=== PATIENT | female | born 1995 | race Caucasian/White ===

== ENCOUNTER 2019-05-19 02:25 | Inpatient (IN) ==
[2019-05-19] MEDS ORDERED: STADOL IV PRN ×2 (03:03→04:20)
[2019-05-19] MEDS ORDERED: LR 1,000 ML IV SCH ×2 (03:15→04:30)
[2019-05-19] MEDS ORDERED: PEPCID PO ONE (04:20)
[2019-05-19] MEDS ORDERED: PEPCID IV PRN (04:20)
[2019-05-19] MEDS ORDERED: TYLENOL PO PRN (04:20)
[2019-05-19] MEDS ORDERED: REGLAN PO ONE (04:20)
[2019-05-19] MEDS ORDERED: KEFZOL 1 GM/D5W 1 GM/50 ML IVPB IV PRN (04:20)
[2019-05-19] MEDS ORDERED: ZOFRAN IV PRN (04:20)
[2019-05-19] MEDS ORDERED: SODIUM CHLORIDE 0.9% INJ SCH (04:30)
[2019-05-19] MEDS ORDERED: PITOCIN 30 UNITS/NS 30 UNIT/500 ML IV.SOLN IV SCH ×2 (04:30→10:15)
[2019-05-19] MEDS ORDERED: BICITRA PO ONE (04:33)
[2019-05-19] MEDS ORDERED: REGLAN IV ONE (04:33)
[2019-05-19] MEDS ORDERED: FENTANYL IV ONE (04:33)
[2019-05-19 04:42] LABS: BASO# 0.01 X1000 (0.0-0.2); BASO% 0.1 % (0.0-0.8); EOS# 0.05 X1000 (0.0-0.7); EOS% 0.4 % (0.0-10.0); HEMATOCRIT 35.4 % (37.0-47.0); HEMOGLOBIN 11.8 g/dL (12.0-16.0); IMM GRAN# 0.07 X1000 (0.0-0.04); IMM GRAN% 0.6 % (0.0-0.5); LYMPH# 2.92 X1000 (1.2-3.4); LYMPH% 24.9 % (20.5-51.1); MCH 29.5 PG (27-31); MCHC 33.3 g/dL (33-37); MCV 88.5 FL (81-99); MONO# 1.19 X1000 (0.11-0.59); MONO% 10.1 % (1.7-9.3); MPV 9.2 FL (7.4-10.4); NEUT# 7.51 X1000 (1.4-6.5); NEUT% 63.9 % (42.2-75.2); PLT 355 X1000 (130-400); RDW 13.4 % (11.5-14.5); WBC 11.75 X1000 (4.8-10.8)
[2019-05-19] MEDS ORDERED: FENTANYL-BUPIV-NS 2 MCG-0.1% 250 ML EPIDURAL SCH (04:45)
[2019-05-19] MEDS ORDERED: MINERAL OIL MISC ONE (05:01)
[2019-05-19] MEDS ORDERED: XYLOCAINE-MPF 1% INJ ONE (05:02)
[2019-05-19 06:36] LABS: URINE SOURCE VOIDED
[2019-05-19 06:37] LABS: BILIRUBIN URINE NEGATIVE (NEGATIVE); BLOOD URINE 4+ (NEGATIVE); CLARITY SL. CLOUDY (CLEAR); COLOR YELLOW; GLUCOSE URINE NEGATIVE (NEGATIVE); KETONE URINE 1+(Small) mg/dL (NEGATIVE); LEUKOCYTES URINE TRACE (NEGATIVE); NITRITE URINE NEGATIVE (NEGATIVE); PROTEIN URINE 1+(30 mg/dL) mg/dL (NEGATIVE); SP GRAVITY URINE 1.025; UROBILINOGEN URINE NORMAL
[2019-05-19] MEDS ORDERED: DURAMORPH ONE (06:46)
[2019-05-19] MEDS ORDERED: ZOFRAN ONE (06:47)
[2019-05-19] MEDS ORDERED: PITOCIN ONE ×2 (06:47→08:11)
[2019-05-19] MEDS ORDERED: TORADOL ONE (06:47)
[2019-05-19] MEDS ORDERED: NEO-SYNEPHRINE ONE (06:47)
[2019-05-19] MEDS ORDERED: SODIUM CHLORIDE 0.9% 10 ML ONE (06:47)
[2019-05-19] MEDS ORDERED: ROBINUL ONE (06:54)
[2019-05-19 07:07] LABS: UR AMPHETAMINES QUAL NONE DETECTED (NONE DETECT); UR BARBITUATES QUAL NONE DETECTED (NONE DETECT); UR BENZODIAZEPIN QUAL NONE DETECTED (NONE DETECT); UR CANNABINOIDS QUAL NONE DETECTED (NONE DETECT); UR COCAINE QUAL NONE DETECTED (NONE DETECT); UR METHADONE QUAL NONE DETECTED (NONE DETECT); UR METHAMPHETAMINE QUAL NONE DETECTED (NONE DETECT); UR OPIATES QUAL NONE DETECTED (NONE DETECT); UR OXYCODONE QUAL NONE DETECTED (NONE DETECT); UR PCP QUAL NONE DETECTED (NONE DETECT); UR PROPOXYPHENE QUAL NONE DETECTED (NONE DETECT); UR TCA QUAL NONE DETECTED (NONE DETECT)
--- NOTE | 2019-05-19 07:13 | HISTORY AND PHYSICAL ---
HISTORY OF PRESENT ILLNESS: The patient is a 24-year-old white female, G1, P0 at 39 and 3/7 weeks by early ultrasound. Has been under the care of [facility]. She presented with a onset of uterine contractions and was concerned that she could not make it to [facility]. care was unremarkable. She had a rubella nonimmune status and group B strep culture was negative. PAST MEDICAL HISTORY: Significant for lung mass that was diagnosed in August of this year. PAST SURGICAL HISTORY: She had a lung biopsy performed. She also had tear duct surgery. PAST OBSTETRIC HISTORY: G1, P0. GYNECOLOGIC HISTORY: Menarche at age 16. REVIEW OF SYSTEMS: Significant for asthma. FAMILY HISTORY: Significant for diabetes mellitus, high blood pressure, multiple sclerosis, and breast cancer. SOCIAL HISTORY: Tobacco use, she reports she quit 2 years ago. Alcohol use none. MEDICATIONS: Zantac, vitamins and Tylenol p.r.n. ALLERGIES: No known drug allergies. PHYSICAL EXAMINATION: VITAL SIGNS: Height 5 feet 4 inches, weight 226 pounds, temp 97.5 degrees, blood pressure 136/87, pulse of 91, respirations 22. heart rate in the 120s with positive accelerations. HEENT: Pupils equal, round, reactive to light and accommodation. Extraocular movements intact. Oropharynx clear. NECK: Supple. No thyromegaly. LUNGS: Clear to auscultation. HEART: Regular rate and rhythm. ABDOMEN: Gravid, nontender. Cervix was examined and was 9 cm, ruptured, completely effaced and vertex presentation was noted at 0 station. EXTREMITIES: 1+ DTRs bilaterally. Mild lower extremity edema. ASSESSMENT/PLAN: A 24-year-old white female, G1, P0 at 39 and 3/7 weeks in active labor. The patient has received an epidural and anticipate a vaginal delivery. cc: Khurram Simon III, MD
[2019-05-19] MEDS ORDERED: VERSED ONE (07:32)
[2019-05-19] MEDS ORDERED: PHENERGAN ONE (07:40)
[2019-05-19] MEDS ORDERED: DILAUDID ONE (08:19)
[2019-05-19] MEDS ORDERED: XYLOCAINE-MPF 1% INJ PRN ×2 (09:28→10:15)
--- NOTE | 2019-05-19 09:44 | OB/GYN PROGRESS NOTE ---
Progress Note OB - . OB Progress Note: Vital Signs - 24 hr 05/19/19 03:00 05/19/19 07:00 Temperature 97.5 F L 96.8 F L Pulse Rate 87 86 Respiratory Rate 24 16 Blood Pressure 148/82 139/78 O2 Sat by Pulse Oximetry 98 Laboratory Results - last 24 hr 05/19/19 05/19/19 05/19/19 03:15 03:15 06:00 WBC 11.75 H RBC 4.00 L Hgb 11.8 L Hct 35.4 L MCV 88.5 MCH 29.5 MCHC 33.3 RDW Std Deviation 13.4 Plt Count 355 MPV 9.2 Immature Gran % (Auto) 0.6 H Neut % (Auto) 63.9 Lymph % (Auto) 24.9 [place] % (Auto) 10.1 H Eos % (Auto) 0.4 Baso % (Auto) 0.1 Immature Gran # (Auto) 0.07 H Neut # (Auto) 7.51 H Lymph # (Auto) 2.92 [place] # (Auto) 1.19 H Eos # (Auto) 0.05 Baso # (Auto) 0.01 Urine Source Urine Color Urine Clarity Urine pH Ur Specific [place] Urine Protein Urine Ketones Urine Blood Urine Nitrite Urine Bilirubin Urine Urobilinogen Urine WBC Urine Glucose Urine Opiates Screen NONE DETECTED Ur Oxycodone Screen NONE DETECTED Urine Methadone Screen NONE DETECTED U Propoxyphene Qual NONE DETECTED Ur Barbituates Screen NONE DETECTED Ur Tricyclics Screen NONE DETECTED Ur Phencyclidine Scrn NONE DETECTED Ur Amphetamines Screen NONE DETECTED U Methamphetamines Scrn NONE DETECTED U Benzodiazepines Scrn NONE DETECTED Urine Cocaine Screen NONE DETECTED U Cannabinoids Screen NONE DETECTED RPR NON-REACTIVE 05/19/19 06:00 WBC RBC Hgb Hct MCV MCH MCHC RDW Std Deviation Plt Count MPV Immature Gran % (Auto) Neut % (Auto) Lymph % (Auto) [place] % (Auto) Eos % (Auto) Baso % (Auto) Immature Gran # (Auto) Neut # (Auto) Lymph # (Auto) [place] # (Auto) Eos # (Auto) Baso # (Auto) Urine Source VOIDED Urine Color YELLOW Urine Clarity SL. CLOUDY A Urine pH 5.0 Ur Specific [place] 1.025 Urine Protein 1+(30 mg/dL) A Urine Ketones 1+(Small) A Urine Blood 4+ Urine Nitrite NEGATIVE Urine Bilirubin NEGATIVE Urine Urobilinogen NORMAL Urine WBC TRACE A Urine Glucose NEGATIVE Urine Opiates Screen Ur Oxycodone Screen Urine Methadone Screen U Propoxyphene Qual Ur Barbituates Screen Ur Tricyclics Screen Ur Phencyclidine Scrn Ur Amphetamines Screen U Methamphetamines Scrn U Benzodiazepines Scrn Urine Cocaine Screen U Cannabinoids Screen RPR OB Progress now entering 2nd stage +FHT cat1-[address] cx q 3-4 efw 3700g anticipate
[2019-05-19] MEDS ORDERED: MINERAL OIL PO PRN (10:15)
[2019-05-19] MEDS ORDERED: BOOSTRIX VACCINE IM ONE (10:15)
[2019-05-19] MEDS ORDERED: M-M-R II VACCINE SUBQ ONE (10:15)
[2019-05-19] MEDS ORDERED: BENADRYL PO PRN (10:15)
[2019-05-19] MEDS ORDERED: BENADRYL IV PRN (10:15)
[2019-05-19] MEDS ORDERED: HYDROXYZINE IM PRN (10:15)
[2019-05-19] MEDS ORDERED: PITOCIN 20 UNITS/NS 20 UNITS/1,000 ML IV.SOLN IV PRN (10:15)
[2019-05-19] MEDS ORDERED: AMBIEN PO PRN (10:15)
[2019-05-19] MEDS ORDERED: CYTOTEC PO PRN (10:15)
[2019-05-19] MEDS ORDERED: PERI MEDS (DERMOPLAST/NUPERCAINAL/TUCKS) MISC PRN (10:15)
[2019-05-19] MEDS ORDERED: PITOCIN IM PRN (10:15)
[2019-05-19] MEDS ORDERED: ATARAX PO PRN (10:15)
--- NOTE | 2019-05-19 10:33 | OPERATIVE NOTE ---
PROCEDURE DATE: 05/19/2019 PROCEDURES: 1. Normal spontaneous vaginal delivery. 2. Repair of primary laceration. DESCRIPTION OF PROCEDURE: The patient was second stage of labor, pushed for 30 minutes. A 24- year-old 1, para 0, now 1. Second stage of labor at 39 and 3/7 weeks gestation. She pushed for approximately 30 minutes, and delivered, over a primary laceration, a liveborn female , delivered to the maternal abdomen. The cord was clamped x2 and cut, and the was placed skin to skin. The placenta delivered intact with a three-vessel cord spontaneously after evolution of cord blood. The perineum was inspected and found to be completely hemostatic, and a primary laceration was repaired with 2-0 chromic in the usual fashion. The procedure was performed under epidural anesthesia, with Apgars of 8 and 9, weight 7 pounds 2 ounces. cc: Khurram Simon III, MD
[2019-05-19] MEDS: PEPCID PO PRN (12:49)
[2019-05-19] MEDS: MOTRIN PO PRN (12:50)
[2019-05-19] MEDS: PERICOLACE PO SCH (21:11)
[2019-05-20 06:29] LABS: BASO# 0.02 X1000 (0.0-0.2); BASO% 0.1 % (0.0-0.8); EOS# 0.07 X1000 (0.0-0.7); EOS% 0.5 % (0.0-10.0); HEMOGLOBIN 8.4 g/dL (12.0-16.0); IMM GRAN# 0.06 X1000 (0.0-0.04); IMM GRAN% 0.4 % (0.0-0.5); LYMPH% 16.6 % (20.5-51.1); MCH 28.8 PG (27-31); MCHC 31.1 g/dL (33-37); MCV 92.5 FL (81-99); MONO# 1.14 X1000 (0.11-0.59); MONO% 7.9 % (1.7-9.3); NEUT# 10.75 X1000 (1.4-6.5); NEUT% 74.5 % (42.2-75.2); PLT 294 X1000 (130-400); RBC 2.92 XMIL (4.2-5.4); RDW 13.8 % (11.5-14.5); WBC 14.44 X1000 (4.8-10.8)
--- NOTE | 2019-05-20 07:34 | OB/GYN PROGRESS NOTE ---
Progress Note OB - . OB Progress Note: Vital Signs - 24 hr 05/19/19 10:20 05/19/19 10:40 05/19/19 10:50 Temperature 98.5 F Pulse Rate 117 H 110 H 112 H Respiratory Rate 18 16 16 Blood Pressure Blood Pressure [Right Arm] 153/87 129/69 124/60 O2 Sat by Pulse Oximetry 99 100 100 05/19/19 11:00 05/19/19 11:10 05/19/19 11:20 Temperature Pulse Rate 103 H 97 H 98 H Respiratory Rate 16 16 16 Blood Pressure 104/77 Blood Pressure [Right Arm] 136/81 141/76 140/77 O2 Sat by Pulse Oximetry 100 100 98 05/19/19 15:55 05/19/19 21:07 05/20/19 04:27 Temperature 97.4 F L 97.4 F L Pulse Rate 89 116 H 100 H Respiratory Rate 16 20 18 Blood Pressure 134/66 113/65 121/69 Blood Pressure [Right Arm] O2 Sat by Pulse Oximetry 98 97 97 Laboratory Results - last 24 hr 05/20/19 05:22 WBC 14.44 H RBC 2.92 L Hgb 8.4 L D Hct 27.0 L D MCV 92.5 MCH 28.8 MCHC 31.1 L RDW Std Deviation 13.8 Plt Count 294 MPV 9.0 Immature Gran % (Auto) 0.4 Neut % (Auto) 74.5 Lymph % (Auto) 16.6 L [place] % (Auto) 7.9 Eos % (Auto) 0.5 Baso % (Auto) 0.1 Immature Gran # (Auto) 0.06 H Neut # (Auto) 10.75 H Lymph # (Auto) 2.40 [place] # (Auto) 1.14 H Eos # (Auto) 0.07 Baso # (Auto) 0.02 PP1 no cx s/nt -cce breast hgb 8.4 ro 11.1 lochia nl home tomorrow discussed ambulation
[2019-05-20] MEDS: PERICOLACE PO SCH (20:01)
[2019-05-21] MEDS: PEPCID PO PRN (00:08)
[2019-05-21] MEDS: MOTRIN PO PRN (00:08)
[2019-05-21 08:26] VITALS: BP 123/84
--- NOTE | 2019-05-21 14:25 | DISCHARGE SUMMARY ---
ADMISSION DATE: 05/19/2019 DISCHARGE DATE: 05/21/2019 ADMISSION DIAGNOSIS: A 24-year-old white female, G1, P0 at 39 and 3/7 weeks in active labor. FINAL DIAGNOSIS: A 24-year-old white female, G1, P0 at 39 and 3/7 weeks in active labor. Spontaneous vaginal delivery of a female 7 pounds 2 ounces with Apgars of 8 and 9 at 0955 on 05/19/2019. PROCEDURE: Spontaneous vaginal delivery. BRIEF HISTORY: Patient is a 24-year-old white female, G1, P0 at 39 and 3/7 weeks by early ultrasound, had been under the care of [facility], presented to [facility] with onset of uterine contractions and she was concerned that she would not make it to [facility]. care was unremarkable. She had a rubella nonimmune status and group B strep culture was negative. PAST MEDICAL HISTORY: Significant for lung mass that was biopsied in August of this year that was benign. PAST SURGICAL HISTORY: Lung biopsy as mentioned above. She also had tear duct surgery. PAST OB HISTORY: G1, P0. MEDICARE INTERVIEWER HISTORY: Menarche at age 16. REVIEW OF SYSTEMS: Significant for asthma. FAMILY HISTORY: Significant for diabetes mellitus, high blood pressure, multiple sclerosis, and breast cancer. SOCIAL HISTORY: Tobacco Use: She states she quit 2 years ago. Alcohol Use: None. MEDICATIONS: Zantac, vitamins, and Tylenol p.r.n. ALLERGIES: No known drug allergies. PHYSICAL EXAMINATION: Vital Signs: Height 5 feet 4 inches, weight 226 pounds, temp 97.5 degrees, blood pressure 136/87, pulse of 91, respirations 22. heart rate in the 120s with positive accelerations. HEENT: Pupils equal, round, reactive to light and accommodation. Extraocular movements intact. Oropharynx clear. Neck: Supple, no thyromegaly. Lungs: Clear to auscultation. Heart: Regular rate and rhythm. Abdomen: Gravid, nontender. Cervix was examined and she was 9 cm, ruptured, completely effaced, and vertex presentation noted to be 0 station. Extremities: 1+ DTRs bilaterally with mild lower extremity edema. ASSESSMENT/PLAN: 24-year-old white female, G1, P0 at 39 and 3/7 weeks in active labor. The patient received an epidural and anticipates a vaginal delivery. The patient had a spontaneous vaginal delivery of a female 7 pounds 2 ounces with Apgars of 8 and 9 at 0955 on 05/19/2019. The patient's course was unremarkable. It was noted that her hemoglobin had decreased to 8.4 and hematocrit was 27.0. She had stable vital signs and was afebrile and on day #2 felt she could be discharged home. DISCHARGE INSTRUCTIONS: Patient will be discharged home. She will follow up with Dr. Lopez in 6 weeks. She was given instructions on pelvic rest for the next 6 weeks. She is unsure at present time of control method. She was given prescriptions for [place] 5, dispensed 20 with no refills, Colace 100 mg dispense 30 with 1 refill, Motrin 800 mg dispensed 30 with 1 refill and iron sulfate 325 mg dispensed 30 with 1 refill. cc: Khurram Simon III, MD
== END 2019-05-21 10:45 | disposition home or self-care (01) | DRG 807 ==
LOC: P.ED 02:25 → P.OPLD 02:34 → P.LD 02:36 → P.OPLD 02:43 → P.LD 02:59
PROVIDERS: ADMIT Obstetrics & Gynecology; ATTEND Obstetrics & Gynecology